=== PATIENT | female | born 1935 | race Caucasian/White ===

== ENCOUNTER 2016-05-21 12:11 | Emergency (ER) | payer MEDICARE, BC ==
--- NOTE | 2016-05-21 16:50 | Emergency Department Record ---
History of Present Illness - General Chief Complaint: Laceration(s) Stated Complaint: HEAD INJURY Time Seen by Provider: 05/21/16 14:47 Source: Patient, Family Mode of Arrival: Ambulatory Limitations: No limitations - History of Present Illness Initial Commments: pt fell and hit head on bed this morning Onset/Timin -: Hour(s) Location: Face Place: Home Context: Accidental, Fall - [place] Coma Scale Eye Response: (4) Open spontaneously Motor Response: (6) Obeys commands Verbal Response: (5) Oriented [place] Total: 15 - Related Data Home Medications Medication Instructions Recorded Confirmed Last Taken Acetaminophen/Diphenhydramine [Eql 1 each PO ASDIR 05/21/16 05/21/16 05/20/16 Acetaminophen Pm Caplet] Aspirin [Adult Low Dose Aspirin EC] 81 mg PO DAILY 05/21/16 05/21/16 05/21/16 Atorvastatin Calcium [Lipitor] 20 mg PO DAILY 05/21/16 05/21/16 05/21/16 Cholecalciferol (Vitamin D3) 2,000 unit PO DAILY 05/21/16 05/21/16 05/21/16 [Vitamin D3] Fenofibrate Nanocrystallized 145 mg PO ASDIR 05/21/16 05/21/16 05/21/16 [Tricor] Hydralazine HCl 50 mg PO 05/21/16 Unknown Hydralazine HCl 50 mg PO ASDIR 05/21/16 05/21/16 05/21/16 Levothyroxine Sodium [Synthroid] 112 mcg PO DAILY 05/21/16 05/21/16 05/21/16 Losartan Potassium [Cozaar] 100 mg PO DAILY 05/21/16 05/21/16 05/21/16 Magnesium Oxide [Mag Ox] 400 mg PO DAILY 05/21/16 05/21/16 05/21/16 Metformin ER HCl [Glucophage Xr] 500 mg PO DAILY 05/21/16 05/21/16 05/21/16 Nortriptyline HCl [Pamelor] 25 mg PO ASDIR 05/21/16 05/21/16 05/20/16 Omeprazole 20 mg PO DAILY 05/21/16 05/21/16 05/21/16 Potassium Chloride [Klor-Con] 10 meq PO DAILY 05/21/16 05/21/16 05/21/16 Triamterene/Hydrochlorothiazid 1 each PO DAILY 05/21/16 05/21/16 05/21/16 [Triamterene-Hctz 50-25 mg Cap] Venlafaxine HCl [Effexor Xr] 150 mg PO DAILY 05/21/16 05/21/16 05/21/16 Verapamil HCl [Verapamil Sr] 120 mg PO DAILY 05/21/16 05/21/16 05/21/16 Allergies Allergy/AdvReac Type Severity Reaction Status Date / Time Carbapenems Allergy Unknown PT UNSURE Verified 05/21/16 14:18 OF REACTION Cephalosporins Allergy Unknown PT UNSURE Verified 05/21/16 14:18 OF REACTION Penicillins Allergy Unknown PT UNSURE Verified 05/21/16 14:18 OF REACTION Allergies: Allergy Unknown PT UNSURE Uncoded 05/21/16 14:18 OF REACTION Travel Screening - Travel/Exposure Within Last 30 Days Have you traveled within the last 30 days?: No - Travel/Exposure Within Last Year Have you traveled outside the [place] in the last year?: No - Additonal Travel Details Have you been exposed to anyone with a communicable illness?: No - Travel Symptoms Symptom Screening: None Review of Systems Reviewed: No additional complaints except as noted below Constitutional: Reports: As per HPI. Denies: Chills, Fever, Malaise, Night sweats, Weakness, Weight change Eyes: Reports: As per HPI. Denies: Eye discharge, Eye pain, Photophobia, Vision change ENT: Reports: As per HPI. Denies: Congestion, Dental pain, Ear pain, Epistaxis , Hearing loss, Throat pain Respiratory: Reports: As per HPI. Denies: Cough, Dyspnea, Hemoptysis, Stridor, Wheezes Cardiovascular: Reports: As per HPI. Denies: Arrhythmia, Chest pain, Dyspnea on exertion, Edema, Murmurs, Orthopnea, Palpitations, Paroxysmal nocturnal dyspnea, Rheumatic Fever, Syncope Endocrine: Reports: As per HPI. Denies: Fatigue, Heat or cold intolerance, Polydipsia, Polyuria Gastrointestinal: Reports: As per HPI. Denies: Abdominal pain, Constipation, Diarrhea, Hematemesis, Hematochezia, Melena, Nausea, Vomiting Genitourinary: Reports: As per HPI. Denies: Abnormal menses, Discharge, Dyspareunia, Dysuria, Frequency, Hematuria, Incontinence, Retention, Urgency Musculoskeletal: Reports: As per HPI. Denies: Arthralgia, Back pain, Gout, Joint swelling, Myalgia, Neck pain Skin: Reports: As per HPI. Denies: Bruising, Change in color, Change in hair/ nails, Lesions, Pruritus, Rash Neurological: Reports: As per HPI. Denies: Abnormal gait, Confusion, Headache, Numbness, Paresthesias, Seizure, Tingling, Tremors, Vertigo, Weakness Psychiatric: Reports: As per HPI. Denies: Anxiety, Auditory hallucinations, Depression, Homicidal thoughts, Suicidal thoughts, Visual hallucinations Hematological/Lymphatic: Reports: As per HPI. Denies: Anemia, Blood Clots, Easy bleeding, Easy bruising, Swollen glands Past Medical History - SOCIAL HISTORY Smoking Status: Never smoker Alcohol Use: Rare Drug Use: None - RESPIRATORY Hx Respiratory Disorders: No - CARDIOVASCULAR Hx Cardio Disorders: Yes Hx Hypertension: Yes Comment:: high cholesterol - NEURO Hx Neuro Disorders: No - GI Hx GI Disorders: No - Hx Genitourinary Disorders: No - ENDOCRINE Hx Endocrine Disorders: Yes Hx Diabetes: Yes Hx Thyroid Disease: Yes - MUSCULOSKELETAL Hx Musculoskeletal Disorders: No - PSYCH Hx Psych Problems: No - HEMATOLOGY/ONCOLOGY Hx Hematology/Oncology Disorders: No Family Medical History Any Significant Family History?: No Physical Exam - General General Appearance: Alert, Oriented x3, Cooperative, No acute distress, Mild distress - Head Head exam: Normal inspection Head exam detail: Laceration Image of Face/Head: 1 - 2.2 cm lac - Eye Eye exam: Normal appearance, PERRL, EOMI Pupils: Normal accommodation - ENT ENT exam: Normal exam, Mucous membranes moist, Normal external ear exam, Normal orophraynx Ear exam: Normal external inspection. negative: External canal tenderness Nasal Exam: Normal inspection. negative: Discharge, Sinus tenderness Mouth exam: Normal external inspection, Tongue normal Teeth exam: Normal inspection. negative: Dental caries Throat exam: Normal inspection. negative: Tonsillar erythema, Tonsillar exudate - Neck Neck exam: Normal inspection, Full ROM. negative: Tenderness - Respiratory Respiratory exam: Normal lung sounds bilaterally. negative: Respiratory distress - Cardiovascular Cardiovascular Exam: Regular rate, Normal rhythm, Normal heart sounds - GI/Abdominal GI/Abdominal exam: Soft, Normal bowel sounds. negative: Tenderness - Rectal Rectal exam: Deferred - exam: Deferred - Extremities Extremities exam: Normal inspection, Full ROM, Normal capillary refill. negative: Tenderness - Back Back exam: Reports: Normal inspection, Full ROM. Denies: Muscle spasm, Rash noted, Tenderness - Neurological Neurological exam: Alert, CN II-XII intact, Normal gait, Oriented X3 - Psychiatric Psychiatric exam: Normal affect, Normal mood - Skin Skin exam: Dry, Intact, Normal color, Warm Course Vital Signs 05/21/16 14:33 Temperature 97.7 F Pulse Rate 85 Respiratory 20 Rate Blood Pressure 139/63 Pulse Ox 99 Disposition Disposition: Discharge Clinical Impression: Facial Laceration Qualifiers: Encounter type: initial encounter Qualified Code(s): S01.81XA - Laceration without foreign body of other part of head, initial encounter Injury of Head Qualifiers: Encounter type: initial encounter Qualified Code(s): S09.90XA - Unspecified injury of head, initial encounter Disposition: Home, Self-Care Condition: (1) Good Instructions: Laceration (ED), Minor Head Injury (ED), Suture Care (ED) Additional Instructions: sutures out in 6 days. return sooner if worse. follow up with family doctor. Forms: Patient Portal Access Laceration - Head - Time Out Informed consent:: Informed consent obtained Start Date: 05/21/16 Start Time: 16:30 - Location Laceration located on:: Face Length of laceration:: 2.2 Length of laceration:: cm - Clean and Prep Laceration cleaning method:: Cleansed Laceration cleaning agent:: Normal Saline - Topical Anesthetic Lidocaine dose:: 1 mL Lidocaine used:: 1% - Medication Medicated for procedure?: No - Procedural Detail Tissue detail:: Crushed Foreign body in the wound?: No Undermining was preformed?: No Stent applied?: No [place] applied?: No (4 simple interrupted sutures w 5.0 proline)
--- NOTE | 2016-05-25 10:57 | CT SCAN REPORT ---
EXAM: EMERGENCY HEAD CT WITHOUT CONTRAST HISTORY: PATIENT FELL TODAY AND HIT FOREHEAD. TECHNIQUE: Axial CT scan of the head was performed without IV contrast. Comparison: None. Encounter: Initial. Hand dominance: Right. FINDINGS: No definite acute intracranial hemorrhage identified. No focal mass effect or midline shift evident. 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 No depressed calvarial fracture is evident. There is a tiny amount of air in the scalp of the forehead presumably related to a scalp laceration in this region. Probable cyst or polyp left side of the sphenoid sinus. IMPRESSION: 1. NO ACUTE INTRACRANIAL HEMORRHAGE OR FOCAL MASS EFFECT EVIDENT. 2. GENERALIZED ATROPHY WITH CHRONIC APPEARING DEEP WHITE MATTER CHANGES. 3. CYST OR POLYP IN THE LEFT SIDE OF THE SPHENOID SINUS. 4. SMALL AMOUNT OF AIR IN THE SCALP OF THE FOREHEAD PRESUMABLY RELATED TO A SCALP LACERATION IN THIS LOCATION. JOB NUMBER: [id number] MTDD
== END 2016-05-21 17:07 | disposition home or self-care (01) ==
LOC: ER 12:11
DX: S01.81XA Laceration without foreign body of other part of head, initial encounter (principal); W06.XXXA Fall from bed, initial encounter; Y92.009 Unspecified place in unspecified non-institutional (private) residence as the place of occurrence of the external cause
CPT/HCPCS: 12011; 70450; 99283; 99284

== ENCOUNTER 2016-05-27 10:32 | Emergency (ER) | payer MEDICARE, BC ==
--- NOTE | 2016-05-27 10:45 | Emergency Department Record ---
History of Present Illness - General Chief Complaint: Suture removal Stated Complaint: STITCHES REMOVED Time Seen by Provider: 05/27/16 10:44 Source: Patient, Family Mode of arrival: Ambulatory Limitations: No limitations - History of Present Illness Initial Comments: 80 yo female presents for suture removal. No complaints or new concerns since her injury. She has had some mild left rib pain since the fall. She is at her baseline health otherwise. No headaches, falls, redness, pus or drainage. She denies cough or shortness of breath. She has some faint bruising over the left ribs. No physical limitations from the rib pain. MD Complaint: Suture/staple removal -: Week(s) (1) Initial Visit For: Laceration Returns Today for: Staple/stitch removal Symptoms Since Prior Visit: No new symptoms Associated Symptoms: None - Related Data Home Medications Medication Instructions Recorded Confirmed Last Taken Acetaminophen/Diphenhydramine [Eql 1 each PO ASDIR 05/21/16 05/27/16 05/27/16 Acetaminophen Pm Caplet] Aspirin [Adult Low Dose Aspirin EC] 81 mg PO DAILY 05/21/16 05/27/16 05/27/16 Atorvastatin Calcium [Lipitor] 20 mg PO DAILY 05/21/16 05/27/16 05/27/16 Cholecalciferol (Vitamin D3) 2,000 unit PO DAILY 05/21/16 05/27/16 05/27/16 [Vitamin D3] Fenofibrate Nanocrystallized 145 mg PO ASDIR 05/21/16 05/27/16 05/27/16 [Tricor] Hydralazine HCl 50 mg PO ASDIR 05/21/16 05/27/16 05/27/16 Hydralazine HCl 50 mg PO DAILY 05/21/16 05/27/16 05/27/16 Levothyroxine Sodium [Synthroid] 112 mcg PO DAILY 05/21/16 05/27/16 05/27/16 Losartan Potassium [Cozaar] 100 mg PO DAILY 05/21/16 05/27/16 05/27/16 Magnesium Oxide [Mag Ox] 400 mg PO DAILY 05/21/16 05/27/16 05/27/16 Metformin ER HCl [Glucophage Xr] 500 mg PO DAILY 05/21/16 05/27/16 05/27/16 Nortriptyline HCl [Pamelor] 25 mg PO ASDIR 05/21/16 05/27/16 05/27/16 Omeprazole 20 mg PO DAILY 05/21/16 05/27/16 05/27/16 Potassium Chloride [Klor-Con] 10 meq PO DAILY 05/21/16 05/27/16 05/27/16 Triamterene/Hydrochlorothiazid 1 each PO DAILY 05/21/16 05/27/16 05/27/16 [Triamterene-Hctz 50-25 mg Cap] Venlafaxine HCl [Effexor Xr] 150 mg PO DAILY 05/21/16 05/27/16 05/27/16 Verapamil HCl [Verapamil Sr] 120 mg PO DAILY 05/21/16 05/27/16 05/27/16 Allergies Allergy/AdvReac Type Severity Reaction Status Date / Time Carbapenems Allergy Unknown PT UNSURE Verified 05/21/16 14:18 OF REACTION Cephalosporins Allergy Unknown PT UNSURE Verified 05/21/16 14:18 OF REACTION Penicillins Allergy Unknown PT UNSURE Verified 05/21/16 14:18 OF REACTION Allergies: Allergy Unknown PT UNSURE Uncoded 05/21/16 14:18 OF REACTION Travel Screening - Travel/Exposure Within Last 30 Days Have you traveled within the last 30 days?: No - Travel/Exposure Within Last Year Have you traveled outside the [place] in the last year?: No - Additonal Travel Details Have you been exposed to anyone with a communicable illness?: No - Travel Symptoms Symptom Screening: None Review of Systems Constitutional: Denies: Chills, Fever, Malaise, Weakness Eyes: Denies: Eye discharge, Eye pain, Photophobia, Vision change ENT: Denies: Congestion, Throat pain Respiratory: Denies: Cough Cardiovascular: Reports: Chest pain (left rib tenderness since fall). Denies: Syncope Endocrine: Denies: Fatigue Gastrointestinal: Denies: Abdominal pain, Diarrhea, Nausea, Vomiting Genitourinary: Denies: Dysuria Musculoskeletal: Denies: Arthralgia, Back pain, Joint swelling, Myalgia, Neck pain Skin: Denies: Bruising, Change in color, Rash Neurological: Denies: Headache, Vertigo, Weakness Psychiatric: Denies: Anxiety Hematological/Lymphatic: Denies: Blood Clots, Easy bleeding, Easy bruising, Swollen glands Past Medical History - SOCIAL HISTORY Smoking Status: Never smoker Alcohol Use: None Drug Use: None - RESPIRATORY Hx Respiratory Disorders: No - CARDIOVASCULAR Hx Cardio Disorders: Yes Hx Hypertension: Yes Comment:: high cholesterol - NEURO Hx Neuro Disorders: No - GI Hx GI Disorders: No - Hx Genitourinary Disorders: No - ENDOCRINE Hx Endocrine Disorders: Yes Hx Diabetes: Yes Hx Thyroid Disease: Yes - MUSCULOSKELETAL Hx Musculoskeletal Disorders: No - PSYCH Hx Psych Problems: No - HEMATOLOGY/ONCOLOGY Hx Hematology/Oncology Disorders: No Family Medical History Any Significant Family History?: No Physical Exam - General General Appearance: Alert, Oriented x3, Cooperative, No acute distress, Other ( Baseline poor memory.) Limitations: No limitations - Head Head exam: Atraumatic, Normocephalic, Normal inspection Head exam detail: Laceration (nasal bridge) Image of Face/Head: 1 - healing laceration with intact sutures - Eye Eye exam: Normal appearance. negative: Conjunctival injection, Periorbital swelling, Periorbital tenderness - ENT ENT exam: Normal exam Ear exam: Normal external inspection Nasal Exam: Normal inspection - Neck Neck exam: Normal inspection. negative: Tenderness - Respiratory Respiratory exam: Normal lung sounds bilaterally, Chest wall tenderness (left later ribs, mild). negative: Accessory muscle use, Decreased breath sounds, Respiratory distress, Rhonchi, Stridor, Wheezes - GI/Abdominal GI/Abdominal exam: Soft, Other (No left upper quadrant tenderness). negative: Distended, Tenderness - Rectal Rectal exam: Deferred - exam: Deferred - Extremities Extremities exam: Normal inspection Image of Full Body: 1 - mild left lateral chest tenderness, mid lateral ribs, faint bruising - Back Back exam: Denies: Tenderness - Neurological Neurological exam: Alert, CN II-XII intact, Oriented X3 - Psychiatric Psychiatric exam: Normal affect, Normal mood - Skin Skin exam: Dry, Intact, Normal color, Warm. negative: Erythema Course Vital Signs 05/27/16 10:34 Temperature 97.3 F L Pulse Rate 90 Respiratory 16 Rate Blood Pressure 146/76 Pulse Ox 100 - Reevaluation(s) Reevaluation #1: The wound is healing well No redness or pus Sutures removed without difficulty The patient is with her significant other. He denies any new health concerns since the injury. Given her mild ribs tenderness on the left a CXR was ordered 05/27/16 10:47 05/27/16 10:54 Reevaluation #2: 05/27/16 10:58 Reevaluation #3: The CXR was reviewed No acute process, PTX, or obvious displaced rib Fx on my prelim review 05/27/16 11:11 Disposition Disposition: Discharge Clinical Impression: Visit for suture removal Contusion of rib on left side Qualifiers: Encounter type: initial encounter Qualified Code(s): S20.212A - Contusion of left front wall of thorax, initial encounter Disposition: Home, Self-Care Condition: (1) Good Instructions: Suture Removal (ED), Rib Fracture (ED) Additional Instructions: Return if you have any concerns about the healing of the laceration or any new health concerns Forms: Patient Portal Access Time of Disposition: 10:44
== END 2016-05-27 11:38 | disposition home or self-care (01) ==
LOC: ER 10:32
DX: S20.212A Contusion of left front wall of thorax, initial encounter (principal); Z48.02 Encounter for removal of sutures
CPT/HCPCS: 71020; 99283

== ENCOUNTER 2016-08-07 05:50 | Emergency (ER) | payer MEDICARE, BC | END 2016-08-07 06:15 | disposition left against medical advice (07) | LOC: ER 05:50 | DX: Z53.20 Procedure and treatment not carried out because of patient's decision for unspecified reasons (principal) ==